=== PATIENT | female | born 1940 | race Caucasian/White ===

== ENCOUNTER 2018-03-01 07:52 | Inpatient (IN) | payer MEDICARE, SELFPAY ==
[2018-02-11 12:37] VITALS: BMI 25.0
[2018-03-01] VITALS (13 sets, daily range): BP systolic 124–150; BP diastolic 63–74; PULSE 85–102; RESP 12–27; TEMP 35.5–36.6; O2SAT 94–100; BMI 25.0; BMI 24.1
--- NOTE | 2018-03-01 | DI.RAD.S_ITS ---
PROCEDURE: XR HIP W PEL IF DONE RT 2V INDICATIONS: RIGHT TOTAL HIP TECHNIQUE: AP pelvis and lateral view of the right hip acquired. [facility] 12:02. [facility], [facility], [id number] W PEL IF PERFORMED, 12/06/2015, 11:21. FINDINGS: Bones: Patient is status post right hip arthroplasty, with hardware components in expected positions. The hip joint appears congruent. The visualized bony structures appear intact. A left hip arthroplasty is incidentally noted. There are prominent degenerative changes involving the lumbosacral spine and pubic symphysis. Soft tissues: Overlying postoperative changes are noted. No suspicious soft tissue densities. Expected postoperative changes within the overlying soft tissues are present. There is a surgical drainage catheter overlying the right hip/thigh region. No unexpected radiopaque foreign bodies are identified. IMPRESSION: Expected post surgical changes related to a right total hip arthroplasty. Dictated by: Jason Bowles M.D. on 03/01/2018 at 13:12 Approved by: Jason Bowles M.D. on 03/01/2018 at 13:13
--- NOTE | 2018-03-01 | PATH_ITS ---
[facility] Accession Number: [id number] . 01 Material submitted: . PART A: FEMORAL BIOPSY PART B: FEMORAL HEAD . 01 Clinical history: . HX METASTATIC BREAST CANCER . 02 Diagnosis: A. Femoral Biopsy: Bone fragments and associated trilineage hematopoietic tissue. Negative for metastatic carcinoma by immunohistochemistry studies. . B. Femoral Head, Presumed Fracture Repair: Portions of bone, fibroconnective tissue, and trilineage hematopoietic tissue with reactive changes. No tumor identified by H/E stain. . I/03/08/2018 . 02 Electronically signed: . Sheila iDa MD, Pathologist NPI- [id number] . 01 Gross description: . (A) Received in formalin, labeled femoral biopsy, are multiple fragments of rodas gritty bone and soft tissue (2.5 x 2.0 x 0.2 cm in aggregate). Decalcified and entirely submitted in cassette A1. (B) Received in formalin, labeled femoral head, HX of metastatic breast CX, is a resected femoral head (5.0 x 4.5 x 4.3 cm) with an attached portion of ligmentum teres (2.8 x 2.0 x 0.5 cm). Focal eburnation and exophytic growth are identified. The cut surface is rodas and focally hemorrhagic. The resection margin is inked black. Section code: (B1) portion of ligamentum teres, serially sectioned, entirely submitted; (B2-B4) one full cross-section quartered; (B5-B7) additional retail field representative sections. Note: The bone sections have been decalcified. ([id number]) /MRV . 02 Microscopic: . A. An immunohistochemical stain was performed to evaluate for SILVA and is negative for metastatic carcinoma. The control stain showed appropriate reactivity. . * This test was developed and its performance characteristics determined by [facility]. It has not been cleared or approved by the U.S. Food and Drug Administration. The FDA has determined that such clearance or approval is not necessary. This test is used for clinical purposes. It should not be regarded as investigational or for research. . 02 Pathologist provided ICD-10: Z96.641 . 02 CPT . 302039, 821685, N19706, 281813, 177974 Performed at: 01 [facility] [address] [id number] MD Zoran Castillo MD Phone: [phone] Performed at: 02 [facility] [id number] [place] [id number] MD Dana Martinez MD Phone: [phone]
--- NOTE | 2018-03-01 06:00 | DI.RAD.S_ITS ---
PROCEDURE: XR HIP W PEL IF DONE RT 2V INDICATIONS: prosthesis placement TECHNIQUE: Single intraoperative view of the pelvis and hips acquired. COMPARISON: [facility], CR, [id number] W PEL IF PERFORMED, 12/06/2015, 11:21. FINDINGS: Bones: Limited intraoperative view of the pelvis and hips obtained for surgical planning demonstrates interval partial placement of a right hip prosthesis. The right femoral neck component appears centered in the acetabular cup. A left hip prosthesis is redemonstrated. Soft tissues: Overlying postoperative changes are noted. No suspicious soft tissue densities. IMPRESSION: 1. Intraoperative study obtained for surgical planning demonstrates partial placement of a right hip prosthesis. Dictated by: Zoran Lainez M.D. on 03/01/2018 at 13:09 Approved by: Zoran Lainez M.D. on 03/01/2018 at 13:12
[2018-03-01] MEDS: LACTATED RINGERS 1,000 ML 42 ML IV ×2 (09:27→11:59)
[2018-03-01] MEDS: PREGABALIN 75 MG CAPSULE PO (09:34)
[2018-03-01] MEDS: ACETAMINOPHEN 325 MG TABLET 975 MG PO ×2 (09:34→20:09)
[2018-03-01] MEDS: CELECOXIB 200 MG CAPSULE PO (09:34)
[2018-03-01] MEDS: VANCOMYCIN 1,000 MG/200 ML FROZ.PIGGY 200 MG IV (09:44)
--- NOTE | 2018-03-01 10:12 | PM.PREOP ---
Pre-operative Note Interval Note History & Physical reviewed/Exam performed by Physician: Yes Changes to H&P: No
--- NOTE | 2018-03-01 10:13 | PM.OP.1 ---
Operative Date/Time/Diagnoses Date of procedure: 03/01/18 Time of procedure: 10:50 Pre-op diagnosis: right hip OA, metastatic breast CA Post-op diagnosis: same Procedure & Clinicians Procedure: Right total hip arthroplasty Same procedure as scheduled: Yes Indications: The patient has had progressively worsening right hip pain with radiographic changes consistent with arthritis. She also has a known history of metastatic breast cancer for 18 years. Non-operative management has failed and the patient has requested total hip replacement. The risks, benefits and alternatives to surgery were discussed with the patient prior to proceeding. Risks discussed included, but were not limited to, failure to relieve pain, leg length discrepancy, dislocation, stiffness, infection, nerve damage, deep venous thrombosis, pulmonary embolism, stroke, coma, heart attack, permanent paralysis and , as well as the potential need for eventual revision of the prosthetic. Surgeon: Lynda Winston Front Counter Attendant: Rachel Still Anesthesia Type: General and Spinal Operative Notes Findings: Severe right hip osteoarthritis, good stability Closure Type: primary Specimen(s): other (pathology) Implants & Drains: [employer] cemented 10, R3 52, 36x0 femoral head Applied: drain(s) Estimated Blood Loss (mL): 250 Blood products transfused: none Procedure in detail: The patient was seen in the pre-operative area, where the patient identified the right hip as the operative site and this was marked with my initials. The patient received pre-operative antibiotics and was taken to the operating room and placed on the operative table in the left lateral decubitus position after satisfactory anesthesia. A multimedia specialist out was performed. The right leg was prepared from the ankle to the iliac crest with ChloroPrep in the usual fashion and draped through sterile drapes. The hip was approached through an approximately 20 cm incision centered over the greater trochanter and curving gently posteriorly as it went proximally. This was carried sharply to the fascia paulina, which was divided and retracted with a self retaining retractor. The trochanteric bursa was excised with care being taken to avoid the sciatic nerve, which was identified and protected throughout the case. The short external rotators were incised and the capsulomuscular flap was raised and tagged for later repair. The hip was dislocated, and a femoral neck osteotomy performed approximately 15 mm above the lesser trochanter. Retractors were placed around the femur. The canal was opened with a box cutting osteotome, followed by a T handled reamer and a lateralizing reamer. Canal reaming was performed to a size 10, followed by sequential broaching until there was good stability of the broach in the femur. Retractors were placed to expose the acetabulum. The labrum and central soft tissues were removed. Reaming was performed initially going up in 2 mm increments, then 1 mm increments until good bite was obtained with an odd sized reamer. The cup 1 mm larger than the last reamer was then inserted using the appropriate anteversion guides. She had fairly good quality bone but it was opted to supplement her cup fixation with 6 5 screw. A trial neutral liner was placed. The broach was placed in the canal. A trial head and neck were then placed and the hip relocated and checked for leg length and stability. An intraoperative film confirmed the component position and no evidence of fracture. The patient was stable in the position of sleep, of squatting, and could be put through a range of motion with 45 degrees internal rotation without dislocation. At 90 degrees flexion, internal rotation to 70 was possible before dislocation. This was felt to be satisfactory and the appropriate components were opened, and the trials were removed. The acetabular liner was impacted into position. Because of the patient's history of metastatic breast cancer and fairly soft bone cemented prosthesis was selected. A distal cement restrictor of the smallest size was opened and then trimmed to make it smaller because of her small canal. Even the smallest cementralizer would not pass distally in the canal. Cement was carefully mixed and pressurized into the canal after cleaning the canal with pulse lavage. The final stem was then impacted into the prepared femoral canal. Free cement was carefully cleared and the prosthesis was held stable until all cement had hardened. A brief Betadine soak was performed while trialing with head options. The hip was meticulously irrigated with normal saline. Finally the femoral head was impacted onto the stem. The acetabulum was cleared of all material and the hip relocated one final time. The capsulomuscular flap was then repaired to the greater trochanter though an awl hole using the tag sutures. The short external rotators were repaired with a black braided nylon. A deep drain was placed and brought out anteriorly. The fascia paulina was closed with Vicryl. The subcutaneous layer was closed with barbed sutures and SteriStrips. An Aquacel Ag dressing was applied and the patient was taken to recovery having tolerated the procedure well. Complications: none Condition: stable Disposition: Acute Care Plan for aftercare: The patient will be maintained on a standard total hip replacement protocol with weight bearing as tolerated and posterior hip precautions. The patient will receive Aspirin and sequential compression devices for DVT prophylaxis. The patient will be discharged home when safe for the home environment.
[2018-03-01] MEDS: CEFAZOLIN 2 GM/100 ML FROZ.PIGGY IV ×2 (10:55→18:53)
--- NOTE | 2018-03-01 11:23 | SUR.OPER ---
Lateral on padded OR bed. Gel axillary roll. Arms secured on padded armboard with pillow supporting top arm. Padded hip positioner braces x4 - anterior and posterior chest and pelvis. Additional gel pad used anterior pelvis. Gel pad under bottom leg from knee to foot and secured with tape over sheet.
[2018-03-01] MEDS: BUPIVACAINE 0.25% W/ EPI VIAL 60 ML INJ ×2 (11:27→11:28)
[2018-03-01] MEDS: BUPIVACAINE LIPOSOME 266 MG/20 ML VIAL INJ (11:29)
--- NOTE | 2018-03-01 13:50 | SUR.PHASEI ---
REPORT CALLED TO [facility] ON ACUTE CARE FLOOR. PT IN STABLE CONDITION, VSS. DRSG TO SURGICAL SITE C/D/I. HEMAVAC DRAIN INTACT. +PULSES ON BLE, WARM TO TOUCH AND PINK IN COLOR. PT LAYING IN BED WITH EYES OPEN EATING ICE CHIPS. PT DENIES ANY NAUSEA AND STATES PAIN LEVEL IS TOLERABLE AT THIS TIME. PT BEING TRANSFERED TO FLOOR AT THIS TIME.
--- NOTE | 2018-03-01 14:15 | SUR.PHASEI ---
PT TRANSFERED TO ACUTE CARE FLOOR IN STABLE CONDITION. PT ALERT AND TALKING TO RN DURING TRANSPORT. PT AT BEDSIDE UPON ARRIVAL TO ROOM. BEDSIDE REPORT GIVEN TO [facility] AND TRANSFERED CARE OF PT TO HER AT THAT TIME.
[2018-03-01] MEDS: LACTATED RINGERS 1,000 ML 125 ML IV ×2 (14:55→23:05)
--- NOTE | 2018-03-01 15:47 | PC.NURSE ---
Recieved from pacu at 1410, s/p total hip. No void since surgery and pt doesn't feel a need to void. Has some sensation at knees, can't move toes yet. Cont pulse ox is on and pt is 97% or greater on ra. No pain, no nausea, given some tea per request. PPP in feet w/brisk cap refill. Aquacel dressing to rt hip is c/d/i. Hemovac compressed and drains red fluid. denies any concerns at this time.
--- NOTE | 2018-03-01 16:30 | PT.IIE ---
Current Diagnoses Malignant neoplasm of unspecified site of left female breast (03/01/18) Other chronic pain (03/01/18) Dorsalgia, unspecified (03/01/18) Surgery Performed Operation Date: 03/01/18 10:45 Actual Procedures p Total Hip Arthroplasty(Right) - Lynda Winston MD Surgical History (Last Updated 02/11/18 @ 12:53 by Nichole Lester, RN) History of appendectomy (Acute) History of cholecystectomy (Acute) History of left mastectomy (Acute) History of total left hip arthroplasty (Acute ~12/06/15) Medical History (Last Updated 02/11/18 @ 13:22 by Nichole Lester, RN) Breast cancer, left (Acute) Cataracts, bilateral (Acute) Chronic back pain (Acute) Diarrhea (Acute) Diverticulosis (Acute) Hand foot syndrome (Acute) Heartburn (Acute) Hyperlipidemia (Acute) Malignant neoplasm of unspecified site of left female breast (Acute) Metastatic breast cancer (Acute) Shingles (Acute) Stomatitis (Acute) Unilateral primary osteoarthritis, right hip (Acute) Urinary frequency (Acute) Physical Therapy Inpatient Evaluation/Re-Eval M1 PT/OT-IP Prior Functional Status Start: 03/01/18 17:45 Freq: NEEDED Status: Active Protocol: Document 03/01/18 16:30 AB (Rec: 03/01/18 18:02 AB [id number]) Medical Review Prior Functional Status Medical History Reviewed Yes Communication able to make needs known Mobility and Gait pt staed that she is independent with all mobilities and ambulation without AD Social History Household Members spouse children Living Arrangements Apartment/Condo Number of Floors (Floors) One Floor Number of Stairs To Enter/Railing? no steps to enter Home Environment High Toilet Walk in Shower Home Equipment Front Wheel Walker Straight Cane Shower Seat without Backrest Hand Held Shower Grab Bars In Shower Employment Status Retired Additional Social History Comment has spouse and son to assist her M2 PT-IP Current Condition Start: 03/01/18 17:45 Freq: NEEDED Status: Active Protocol: Document 03/01/18 16:30 AB (Rec: 03/01/18 18:02 AB [id number]) Physical Therapy Current Condition Current Condition Evaluation Date 03/01/18 Treatment Diagnosis s/p R TIMOTHY posterior approach; difficulty in walking Onset Date 03/01/18 Precautions Posterior Hip Precautions No Hip Flexion > 90 degrees No Hip Internal Rotation No Hip Adduction Other Precautions R LE/knee tends to turn inwards Weight Bearing Status Weight Bearing Status Weight Bear as Tolerated M3 PT-IP Subjective Start: 03/01/18 17:45 Freq: NEEDED Status: Active Protocol: Document 03/01/18 16:30 AB (Rec: 03/01/18 18:02 AB [id number]) Subjective Physical Therapy Visit Type Type Initial Evaluation Visit Start Time 16:30 Visit Stop Time 17:17 Total Visit Minutes 47 Number of ANIMATION ARTIST Visits 0 Physical Therapy Visit Comments Patient Comments pt stated that she can feel RLE but not 100% yet Patient Goals to go home Therapy Pain Assessment Pain Present Pain Present Denied Pain M4 PT-IP Mobility and Gait Start: 03/01/18 17:45 Freq: NEEDED Status: Active Protocol: Document 03/01/18 16:30 AB (Rec: 03/01/18 18:02 AB [id number]) PT-Bed Mobility Assessment Supine to Sit Supine to Sit Standby Assistance PT-Transfer Assessment Sit to and From Stand Sit to and from Stand Moderate Assistance Maximum Assistance 1 Person Assistance Use of Upper Extremities Equipment Transfer Assistive Device Gait Belt Front Wheeled Walker Orthotic/Prosthetic Devices or Brace: No Comments Mobility Comments pt completed bed mobility supine to sit SBA and cues to maintain R hip posterior precautions. pt able to sit on EOB SBA. noted increase R knee turning inwards and cued pt to correct position. required assistance for positioning. pt completed sit to stand with cues to maintain hip precautions requiring mod to max A and cues. pt has decrease RLE control and needs assistance and max cues to activate quad muscle. pt agreed to sit up on chair after ambulation. positioned pt on chair with dinner tray. ice pack provided. call light set up within reach. informed nurse regarding pt's level of assistance. Gait Assessment Gait Gait Assistance Required: Moderate Assistance Distance (Feet) 20 Able to Maintain Weight Bearing Status Yes During Gait Assistive Devices Assistive Device Gait Belt Front Wheeled Walker Orthotic/Prosthetic Devices or Brace: No Gait Deviations General Gait Pattern Antalgic Decreased Stride Length Decreased Feet Clearance Factors Limiting Gait Function Factors Limiting Gait Function Abnormal Tonal Influences Decreased Activity Tolerance Decreased Sensation Decreased Strength Incoordination Limited Range of Motion Pain Poor Balance Poor Safety Awareness Comments Gait Comments pt completed ambulation in room using FWW 20 ft requiring mod to max A and max cues to activate R quads. pt unsteady with gait and pt stated that she is still a little numb on RLE. PT-Balance Assessment Sitting Balance and Reactions Static Sitting Balance Ability Good Dynamic Sitting Balance Ability Good Standing Balance and Reactions Static Standing Balance Ability Poor Dynamic Standing Balance Ability Poor Device Used FWW M5 PT-IP Objective Assessments Start: 03/01/18 17:45 Freq: NEEDED Status: Active Protocol: Document 03/01/18 16:30 AB (Rec: 03/01/18 18:02 AB [id number]) Orientation Orientation/Cognition Level of Alertness Alert Orientation Name Age Birthday Place Situation Memory Description Short Term Impaired Gross Range of Motion Lower Extremity ROM Assessment Within Functional Limits Strength Lower Extremity Strength Assessment Right Impaired Knee 3+/5 Ankle 4/5 Sensation Assessment Sensation Gross Sensation Right LE Impaired Light Touch Impaired Sensation Description Numbness Comments Sensation Comments pt c/o slight numbness on RLE. able to move RLE during muscle testing but has decrease sensation. M6 PT-IP Treatment Start: 03/01/18 17:45 Freq: NEEDED Status: Active Protocol: Document 03/01/18 16:30 AB (Rec: 03/01/18 18:02 AB [id number]) Physical Therapy Treatment Exercises Exercises Heel Slides Education Education Provided Precautions Weight Bearing Status Post-Op Packet Safety M7 PT-IP Assessment and Plan Start: 03/01/18 17:45 Freq: NEEDED Status: Active Protocol: Document 03/01/18 16:30 AB (Rec: 03/01/18 18:02 AB [id number]) PT Summary Assessment and Plan Potential Rehabilitation Potential Fair Status of Condition at Evaluation Evolving Summary Impairments Pain ROM Strength Balance Coordination Sensation Tone Cognition Bed Mobility Transfers Gait Activity Tolerance Assessment Summary pt requiring mod to max A with mobility. pt just had surgery this morning and has not fully regained sensation on RLE affecting mobility. pt will likely improve during hospital stay. caregiver training will be conducted when appropriate and if able to safely assist pt, pt may go home when medically stable. pt stated that she is set up for outpt PT. Goals Bed Mobility Goal Independent Transfer Goal Standby Assistance Front Wheeled Walker Gait Goal Standby Assistance Front Wheel Walker Gait Distance 150 Days to Meet Goals 3 Frequency of Treatment Frequency Of Treatment Twice a Day Treatment Plan Physical Therapy Treatment Plan Bed Mobility Training Transfer Training Gait Training Therapeutic Exercise Balance Retraining Post Op Education Discharge Planning Hot or Cold Pack Neuromuscular Re-ed Coordination Retraining Manual Therapy Other Recommendations and Next Treatment ambulation, caregiver training Focus Recommendations To Nursing Amount of Assist Needed 1 Person Assist Discharge Recommendations PT Discharge Recommendations Home with Assistance Outpatient PT
[2018-03-01] MEDS: METOPROLOL IR 50 MG TABLET PO (20:09)
[2018-03-01] MEDS: DOCUSATE 100 MG CAPSULE PO (20:09)
[2018-03-01] MEDS: ATORVASTATIN 10 MG TABLET PO (20:09)
[2018-03-01] MEDS: ASPIRIN EC 81 MG TABLET PO (20:09)
--- NOTE | 2018-03-01 23:45 | PC.NURSE ---
Addendum entered by Galina Parker R.N. 03/02/18 06:31: Doing well with transferring in/out of bed requiring only SBA + walker. Continues to deny pain. Had 80cc out of hemovac this shift. Original Note: Patient is alert and oriented. Breath sounds CTA with RA sat of 98%; remains on continuous pulse oximetry related to epidural anesthesia. HRR. Denies nausea. BT present and is passing flatus. Denies dysuria, frequency or urgency; up to BSC with 1 assist + walker. Dressing to right hip is CDI. Hemovac intact and compressed. Assisted to turn onto right side but did well with moving. States no pain unless lying directly on hip. Following posterior hip precautions. CMS intact. Wearing bilateral SCD's. Fall risk score is high and bed alarm is activated.
[2018-03-02] MEDS: CEFAZOLIN 2 GM/100 ML FROZ.PIGGY IV (02:39)
[2018-03-02 03:00] VITALS: BP 106/61; PULSE 97; RESP 15; TEMP 36.5; O2SAT 97
[2018-03-02] MEDS: LEVOTHYROXINE 137 MCG TABLET PO (06:13)
[2018-03-02 06:32] LABS: Hematocrit 30.8 % (36-46); Hemoglobin 10.4 g/dL (12.0-16.0)
[2018-03-02 08:00] VITALS: BP 124/64; PULSE 106; RESP 16; TEMP 36.7; O2SAT 99
[2018-03-02] MEDS: ASPIRIN EC 81 MG TABLET PO (08:55)
[2018-03-02] MEDS: ACETAMINOPHEN 325 MG TABLET 975 MG PO (08:56)
[2018-03-02] MEDS: LOSARTAN 50 MG TABLET PO (08:57)
[2018-03-02] MEDS: METOPROLOL IR 50 MG TABLET PO (08:58)
[2018-03-02] MEDS: PANTOPRAZOLE 40 MG TABLET PO (08:59)
--- NOTE | 2018-03-02 09:40 | P.DS_ITS ---
History of Present Illness Date Patient Seen: 03/02/18 Time Patient Seen: 09:38 Chief complaint: [id number] RIGHT TOTAL HIP ARTHROPLASTY Narrative: Pain is mild. Denies fever chills. No nausea vomiting. She has been up using the restroom. Has been home to assist her. Patient wishes to go home today if safe to do so. Otherwise without complaints. Discharge Providers Date of admission: 03/01/18 07:52 Primary care physician: Kavita Gutierrez MD Consults: 02/11/18 13:41 Consult to Engraver Signature Routine Comment: Metastatic Breast Cancer - on narcotics for pain 03/01/18 06:00 Consult to Anesthesiology Routine Comment: Consulting Provider: Anesthesiologist Reason for consultation: Regional block for post operative pain control 03/01/18 14:40 Consult to Discharge Planning Routine Comment: Consult to Physical Therapy Evaluate & Treat Comment: Physician Instructions: post op TIMOTHY protocol Consult to Respiratory Therapy Evaluate & Treat Comment: Physician Instructions: Evaluate and treat Discharge provider: Des Love PA-C Discharge Date: 03/02/18 Summary Discharge Diagnosis: Status post right total hip arthroplasty Hospital Course: [place] [address] Operative Note Patient: Sheila Teixeira MR#: [id number] : 1940 Acct:[id number] Age/Sex: 77 / F Date of Service: 03/01/18 Provider: Lynda Winston MD Operative Date/Time/Diagnoses Date of procedure: 03/01/18 Time of procedure: 10:50 Pre-op diagnosis: right hip OA, metastatic breast CA Post-op diagnosis: same Procedure & Clinicians Procedure: Right total hip arthroplasty Same procedure as scheduled: Yes Indications: The patient has had progressively worsening right hip pain with radiographic changes consistent with arthritis. She also has a known history of metastatic breast cancer for 18 years. Non-operative management has failed and the patient has requested total hip replacement. The risks, benefits and alternatives to surgery were discussed with the patient prior to proceeding. Risks discussed included, but were not limited to, failure to relieve pain, leg length discrepancy, dislocation, stiffness, infection, nerve damage, deep venous thrombosis, pulmonary embolism, stroke, coma, heart attack, permanent paralysis and , as well as the potential need for eventual revision of the prosthetic. Surgeon: Lynda Winston Archery Equipment Repairer: Rachel Still Anesthesia Type: General and Spinal Operative Notes Findings: Severe right hip osteoarthritis, good stability Closure Type: primary Specimen(s): other (pathology) Implants & Drains: [employer] cemented 10, R3 52, 36x0 femoral head Applied: drain(s) Estimated Blood Loss (mL): 250 Patient taken to the operating room underwent right total hip arthroplasty. Patient back in her room recovering well as in stable condition. Status at Discharge Functional status at discharge: uses cane/walker Overall status at discharge: patient is progressing back to baseline Time Spent with Patient Less than 30 minutes Exam Vital Signs (past 8 hours): - 03/02/18 03:00 Temperature 97.7 F Pulse Rate 97 H Respiratory Rate 15 Blood Pressure 106/61 Pulse Oximetry 97 Oxygen Delivery Method Room Air Oxygen Flow Rate 0 Narrative Exam Narrative: Pleasant 77-year-old female resting comfortably in bed in no apparent distress. Right hip dressing is clean, dry and intact. Hemovac drain in place. Motor functions intact distal right lower extremity. Right leg is warm and dry. Sensation grossly intact to light touch. Objective Labs Result Diagrams: 03/02/18 06:20 Labs: Laboratory Results - last 24 hr 03/02/18 06:20 Hgb 10.4 L Hct 30.8 L Discharge Plan Discharge Plan Patient Disposition: Home Discharge comment: DC home today Discharge Med Rec/Prescriptions Prescriptions: No Action losartan 50 MG tablet 50 mg PO QDAY Qty: 0 RF: 0 atorvastatin [Lipitor] 10 MG tablet 10 mg PO HS Qty: 0 RF: 0 levothyroxine 137 MCG tablet 0.137 mg PO QAM Qty: 0 RF: 0 metoprolol tartrate 50 MG tablet 50 mg PO BID Qty: 0 RF: 0 capecitabine 500 MG tablet 500 mg PO BID Qty: 0 RF: 0 omeprazole 40 mg Capsule,Delayed Release(Dr/Ec) 40 mg PO DAILY RF: 0 acetaminophen [Acetaminophen Extra Strength] 500 mg Tablet 1,000 mg PO QID PRN (Reason: Pain) RF: 0 hydrocodone-acetaminophen 5-325 mg Tablet 1 tab PO Q6H PRN (Reason: Pain (Scale Score 4-6)) RF: 0 Follow up/Referrals: Kavita Gutierrez MD [Primary Care Provider] - Lynda Winston MD [Physician] - (follow up 5-7 days) Provider Discharge Instructions Diet: Diet as Tolerated Activity: WBAT, posterior hip precautions Cold/Heat Therapy: ice as needed Other treatments: Aspirin 81 mg b.i.d., Tylenol 1000 mg t.i.d., Mobic once daily , oxycodone as needed pain, Vistaril as needed muscle spasm and nausea Skin/Wound/Dressing Care Report to your healthcare provider any signs of infection, such as:: chills, fever, increased pain, unusual drainage and unusual redness Dressing: keep clean and dry Discharge Data Primary Care Provider: Kavita Gutierrez Attending Provider: Lynda Winston Admit Date/Time: 03/01/18 07:52
--- NOTE | 2018-03-02 10:10 | PT.IPTN ---
Current Diagnoses Malignant neoplasm of unspecified site of left female breast (03/01/18) Other chronic pain (03/01/18) Dorsalgia, unspecified (03/01/18) Surgery Performed Operation Date: 03/01/18 10:45 Actual Procedures p Total Hip Arthroplasty(Right) - Lynda Winston MD Physical Therapy Treatment Note M2 PT-IP Current Condition Start: 03/01/18 17:45 Freq: NEEDED Status: Active Protocol: Document 03/01/18 16:30 AB (Rec: 03/01/18 18:02 AB [id number]) Physical Therapy Current Condition Current Condition Evaluation Date 03/01/18 Treatment Diagnosis s/p R TIMOTHY posterior approach; difficulty in walking Onset Date 03/01/18 Precautions Posterior Hip Precautions No Hip Flexion > 90 degrees No Hip Internal Rotation No Hip Adduction Other Precautions R LE/knee tends to turn inwards Weight Bearing Status Weight Bearing Status Weight Bear as Tolerated M3 PT-IP Subjective Start: 03/01/18 17:45 Freq: NEEDED Status: Active Protocol: Document 03/02/18 10:10 GGD (Rec: 03/02/18 12:19 GGD [id number]) Subjective Physical Therapy Visit Type Type Treatment Note Visit Start Time 09:50 Visit Stop Time 10:15 Total Visit Minutes 25 Number of BEAN SPROUT LABORER Visits 1 Physical Therapy Visit Comments Patient Comments Pt states she hopes to go home . Therapy Pain Assessment Pain Present Pain Present Denied Pain M4 PT-IP Mobility and Gait Start: 03/01/18 17:45 Freq: NEEDED Status: Active Protocol: Document 03/02/18 10:10 GGD (Rec: 03/02/18 12:19 GGD [id number]) PT-Bed Mobility Assessment Supine to Sit Supine to Sit Standby Assistance Scooting Scooting to Edge of Bed Standby Assistance PT-Transfer Assessment Sit to and From Stand Sit to and from Stand Standby Assistance Use of Upper Extremities Equipment Transfer Assistive Device Gait Belt Front Wheeled Walker Orthotic/Prosthetic Devices or Brace: No Transfers Transfer Destination Chair Transfer Ability Level of Assist Contact Guard Assistance Gait Assessment Gait Gait Assistance Required: Standby Assistance Distance (Feet) 220 Able to Maintain Weight Bearing Status Yes During Gait Assistive Devices Assistive Device Gait Belt Front Wheeled Walker Orthotic/Prosthetic Devices or Brace: No Gait Deviations General Gait Pattern Antalgic Decreased Stride Length Decreased Feet Clearance Factors Limiting Gait Function Factors Limiting Gait Function Abnormal Tonal Influences Decreased Activity Tolerance Decreased Sensation Decreased Strength Incoordination Limited Range of Motion Pain Poor Balance Poor Safety Awareness M5 PT-IP Objective Assessments Start: 03/01/18 17:45 Freq: NEEDED Status: Active Protocol: Document 03/01/18 16:30 AB (Rec: 03/01/18 18:02 AB [id number]) Orientation Orientation/Cognition Level of Alertness Alert Orientation Name Age Birthday Place Situation Memory Description Short Term Impaired Gross Range of Motion Lower Extremity ROM Assessment Within Functional Limits Strength Lower Extremity Strength Assessment Right Impaired Knee 3+/5 Ankle 4/5 Sensation Assessment Sensation Gross Sensation Right LE Impaired Light Touch Impaired Sensation Description Numbness Comments Sensation Comments pt c/o slight numbness on RLE. able to move RLE during muscle testing but has decrease sensation. M6 PT-IP Treatment Start: 03/01/18 17:45 Freq: NEEDED Status: Active Protocol: Document 03/02/18 10:10 GGD (Rec: 03/02/18 12:19 GGD [id number]) Physical Therapy Treatment Exercises Exercises Ankle Pumps Gluteal Sets Quad Sets Heel Slides Seated Knee Flexion/Extension Education Education Provided Precautions Weight Bearing Status M7 PT-IP Assessment and Plan Start: 03/01/18 17:45 Freq: NEEDED Status: Active Protocol: Document 03/02/18 10:10 GGD (Rec: 03/02/18 12:19 GGD [id number]) PT Summary Assessment and Plan Summary Assessment Summary Pt improving with mobility. She needed less assistance and is SBA for mobility. She was able to progress gait distance with good pain control. Pt is safe for home D/C when medically stable. Frequency of Treatment Frequency Of Treatment Twice a Day Treatment Plan Physical Therapy Treatment Plan Bed Mobility Training Transfer Training Gait Training Therapeutic Exercise Balance Retraining Post Op Education Discharge Planning Hot or Cold Pack Neuromuscular Re-ed Coordination Retraining Manual Therapy Other Recommendations and Next Treatment ambulation Focus Recommendations To Nursing Amount of Assist Needed 1 Person Assist Discharge Recommendations PT Discharge Recommendations Home with Assistance Outpatient PT
--- NOTE | 2018-03-02 10:32 | CM.DANOTE ---
Discharge Planning/Care Management CM Discharge Assessment Start: 03/02/18 10:27 Freq: Status: Active Protocol: Document 03/02/18 10:28 (Rec: 03/02/18 10:32 [id number]) Discharge Planning Assessment Assigned Freight Loading Supervisor DOALYS Kirby Advance Directives? No History Provided By Patient Medical Record Has Patient been admitted in last 30 No days? Prior Living Arrangements Apartment/Condo Household Members spouse children Type of transporation used prior to Drives own vehicle admit Independent with ADL's Yes Is patient alert and oriented? Yes Caregiver for Another No DME Already Rented / Owned Cane Comment Uses cane for long distance or end of day. Patient/Family Preference OP PT Therapy Barriers to Discharge No Discharge Plan Home Community Services Physical Therapy Transportation Arrangement Spouse will provide. Referrals Initiated None needed Comment Patient admitted following a total right hip. Primary payer is Medicare/[employer]. Patient to discharge home today with OP PT. PT has evaluated patient and recommends a safe d/c of home with OP PT. Met with patient: patient agreeable to discharge and has no concerns. 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 Whiteboard Updated in Patient Room with Yes name and ext. # of Freight Loading Supervisor Please Provide Date Initial DC 03/02/18 Assessment Was Performed Pre-Anesthesia Assessment Start: 02/11/18 12:37 Freq: Status: Complete Protocol: Document 02/11/18 12:37 JAY (Rec: 02/11/18 12:44 Gabriella [email or web address]) Pre-Anesthesia Assessment Patient Information Reviewed Via Chart Review Phone Assessment Assessment Completed With Patient Primary Care Provider Kavita Gutierrez Seen Specialist in Last 12 Months Yes Specialist Seen Oncologist Orthopedist Primary Language [employer] Required No Height 162.56 cm Weight 66.224 kg Body Mass Index (BMI) 25.0 Hearing Ability Normal Visual Impairment Partially Limited Visual Assist Glasses Dentition Type Teeth, Natural Present Barriers to Learning Visual Other Aids No Hx Anesthesia Reactions No: Prefers spinal/general Hx Family Anesthesia Reaction No Hx Malignant Hyperthermia No Hx Blood Transfusions No Anesthesia Review Requested No Medical Intern No alcohol intake current alcohol intake frequency a few times a month Smoking Status Never smoker Substance Use Type opiates painkillers Pain Present Pain Reported Comment right hip down right leg Musculoskeletal Symptoms Abnormal Gait Back Pain Joint Pain Joint Stiffness Joint Swelling Limited Range of Motion Muscle Cramps Muscle Spasms Muscle Weakness Radiating Pain into Limb History of Falling (Recent or History of No ) Patient is completely paralyzed or No completely immobile Ambulatory Aid None/bed rest/nurse assist Gait/Transferring Weak Mental Status Oriented to own ability Is patient on oxygen? No Does patient have ZAVALA/SOB No Hx Sleep Apnea No Will Bring CPAP/BIPAP DOS No Currently Taking a Beta Harley Yes: Metoprolol Can You Climb a Flight of Stairs Without No SOB Hx Chest Pain No Hx SOB No Hx Syncope or Dizziness No Anti-Coagulant Therapy No Has a Compounding Assistant Yes: hasn't seen since 2009 Hx Pacemaker/ICD No Pacemaker Rep Required? No Cardiac Clearance Received Not Applicable Diet Type At Home Regular dysphagia Yes Bladder Pattern Incontinent, Stress Nocturia Urinary Catheter Present No Hx Urinary Self Catheterization No Diabetes No Patient No Lactating No Hx Drug Resistant Organism No Presence of External or Internal Medical Yes: Left TIMOTHY Devices Have you traveled outside the [facility] in the last 30 days? Marital Status Lives With spouse children Prior Living Arrangements Apartment/Condo Number of Floors (Floors) One Floor Number of Stairs To Enter/Railing? No stairs into home Support System Child/Children Family Friend(s) Spouse Does the Patient Have Assistance After Yes Surgery Patient Discharge Plan Description Home Health Comment Plans 1 night stay Feels Safe in Current Environment Yes Been Physically Hurt or Threatened By a No Person in Current Environment Do you have thoughts of harming yourself None or others? Are you currently considering suicide? No Do you have a plan to hurt yourself or No Plan others? Do You Have Any Spiritual Beliefs That No May Affect Your HC Choices? Do You Have Any Cultural Practices That No May Affect Your HC Choices? Spiritual Referral None Comment Adventism Who Can We Speak to About Patient's Care Family & Friends Identifying Code for Release of Patient Declines Information Health Care Proxy/Next of Kin Osvaldo Teixeira - Health Care Proxy Emergency Contact Name Osvaldo Teixeira - Emergency Contact Advance Directives? No: Mailed pt/spouse Power of Oracle Identity Management Consultant Yes Power of [employer] Identity Management Consultant Name Osvaldo Teixeira - spouse; then children Power of [employer] Identity Management Consultant PAC Instructions Assistance for 24 hours post- op Do not shave/clip surgical site Durable medical equipment Medications to take/avoid Nasal antibiotic No ETOH/petroleum product on skin DOS NPO Ortho class Post-op transportation Pre-op antibiotic Pre-surgical wash Sensory aids Sturdy shoes/comfortable clothes Do not bring valuables and remove jewelry Comment Check-in [id number]
--- NOTE | 2018-03-02 12:41 | PC.NURSE ---
Addendum entered by Anahi Calvert R.N. 03/02/18 13:46: Pt a/o x3, PT has cleared Pt from services, OK to d/c home. Teaching provided, Pt has completed swiftpath training. D/c to private vehicle with spouse. Original Note: AM shift Medication list not finalized at d/c from provider, verified medications. Copy in chart for MR. Lucas calvert RN
--- NOTE | 2018-03-02 13:47 | PC.NURSE ---
Addendum entered by Edna Mahajan 03/02/18 14:06: IV AND HEMOVAC REMOVED AND INTACT. Original Note: PATIENT UP TO SHOWER WITH 1 PERSON ASSIST WITHOUT DIFFICULTY. REVIEWED DISCHARGE INSTRUCTIONS, REMINED PT NOT TO REMOVE DSG. UNTIL PO VISIT WITH IN 5-7 DAYS. D/C'D WITH .
== END 2018-03-02 15:02 | disposition home or self-care (01) | DRG 470 ==
PROVIDERS: Admitting Provider Orthopaedic Surgery; Family Provider Internal Medicine Hematology & Oncology; PCP Internal Medicine Hematology & Oncology; Visit Provider Orthopaedic Surgery
PROC: 0SR90JZ Replacement of Right Hip Joint with Synthetic Substitute, Open Approach (ICD-10-PCS; CPT 27130; principal; 2018-03-01 10:45)
DX: M16.11 Unilateral primary osteoarthritis, right hip (principal); Z96.642 Presence of left artificial hip joint; I10 Essential (primary) hypertension
CPT/HCPCS: 36415; 73502; 85014; 85018; 88305; 88311; 88342; 94762; 97110; 97116; 97162; 97530; C1776; C9290; J0690; J1100; J2250; J2274; J2405; J2704; J3010; J3370

== ENCOUNTER 2023-10-11 06:33 | Day surgery (SDC) | payer MEDICARE, SELFPAY ==
[2018-03-01 11:01] VITALS: BMI 24.1
[2023-09-25 13:46] VITALS: BMI 18.7
[2023-10-11] VITALS (8 sets, daily range): BP systolic 104–129; BP diastolic 53–70; PULSE 77–88; RESP 10–22; TEMP 36–36.3; O2SAT 96–100; BMI 18.7
--- NOTE | 2023-10-11 06:00 | DI.RAD.S_ITS ---
PROCEDURE: XR SHOULDER RT 1V INDICATIONS: RTSA TECHNIQUE: 1 views of the shoulder were acquired. COMPARISON: [facility] [place] [facility], CR, XR SHOULDER 2+ VIEWS RIGHT, 07/09/2023, 8:39. FINDINGS: Bones: Right shoulder reverse arthroplasty. Hardware is intact without hardware fracture or periprosthetic lucency to suggest loosening. Alignment is stable. Soft tissues: No suspicious soft tissue calcifications. Soft tissue postoperative change. In addition, right Port-A-Cath is stable. IMPRESSION: Right shoulder reverse arthroplasty. Dictated by: Sintia Nye M.D. on 10/12/2023 at 11:23 Approved by: Sintia Nye M.D. on 10/12/2023 at 11:25
--- NOTE | 2023-10-11 07:34 | PM.PREOP ---
Pre-operative Note Interval Note History & Physical reviewed/Exam performed by Physician: Yes Changes to H&P: No
[2023-10-11] MEDS: ACETAMINOPHEN 325 MG TABLET 975 MG PO (07:58)
[2023-10-11] MEDS: LACTATED RINGERS 1,000 ML 42 ML IV ×2 (08:02→10:57)
[2023-10-11] MEDS: TRANEXAMIC ACID 1,000 MG VIAL 1000 MG INJ (09:33)
--- NOTE | 2023-10-11 10:08 | SUR.OPER ---
Beach chair with Palmira/Gloria shoulder positioner. Lower body on padded OR bed. Head in foam padded head cradle, secured with straps. Non-operative arm secured <90 degrees abduction. Pillow under knees. Safety belt at thigh. Cloth tape over blanket over lower legs.
[2023-10-11] MEDS: BUPIVACAINE 0.25% (PF) 30 ML, EPINEPHrine 0.15 MG INJ (10:18)
--- NOTE | 2023-10-11 12:02 | PM.PREOP ---
Pre-operative Note Interval Note History & Physical reviewed/Exam performed by Physician: Yes Changes to H&P: No
--- NOTE | 2023-10-11 13:15 | P.OP_ITS ---
Operative Date/Time/Diagnoses Date of procedure: 10/11/23 Time of procedure: 13:15 Pre-op diagnosis: Right rotator cuff arthropathy Post-op diagnosis: same Procedure & Clinicians Procedure: Right reverse total shoulder arthroplasty Same procedure as scheduled: Yes Indications: Indications: This is a 83-year-old female who has rotator cuff arthropathy. Symptoms have been present for years, insidious onset. Patient has failed a reasonable attempt at conservative therapy. After extensive discussion in clinic, they wished to go forward with surgery. Risks and benefits were described including the risk of infection, bleeding, damage to internal structures including nerves. We also discussed the risk of failure of surgery and the need for revision surgery as well as the risk of anesthesia. The patient expressed understanding with these risks and wished to go forward with surgery. Surgeon: Hebert Kyle Supervisor Respiratory: Des Love Anesthesia Type: General Operative Notes Findings: Findings: Osteoarthritis of the glenoid and humeral head as well as a defient rotator cuff as noted on preoperative imaging and under direct visualization Closure Type: primary Specimen(s): none sent Prosthetic devices, grafts, tissues, transplants, or devices: Tornier implants Base plate: standard 25 mm, +3 mm offset Glenosphere: Standard 36 mm Stem: Perform 2+ Poly: +3 constrained Estimated Blood Loss (mL): 100 Blood products transfused: none Procedure in detail: Patient was seen in the preoperative holding unit. The correct right shoulder was identified and marked with my initials. Again we discussed the risks and benefits of surgery and they wished to go forward with surgery. The patient was brought back to the operating room and placed supine on the operating table. Smooth endotracheal intubation was performed by anesthesia. All prominences were padded and they were placed into the beach chair position. Intravenous antibiotics were given. The right shoulder was then prepped with the standard sterile preparation and draping. A time-out was then performed in my initials were again identified on the correct shoulder. 1 g of IV tranexamic acid was given. A standard deltopectoral incision was made. Skin flaps were made. The cephalic vein was identified and retracted laterally. This was protected throughout the remainder of the case. Sharp dissection was made along the deltoid, subacromial and subcoracoid space to release adhesions. The conjoined tendon was identified and the axillary nerve was palpated and continuous using the tug test. It was protected throughout the remainder of the case. A brown retractor was placed underneath the deltoid muscle and a darach retractor underneath the conjoint tendon. The subscapularis muscle was ntoed to be intact. The anterior circumflex artery and associated veins on the lower border of the subscapularis were identified and tied off using 0-Vicryl. The biceps tendon was identified in the bicipital groove. This was released from its sheath, and taken from its origin on the glenoid and tied into the pectoralis tendon for a solid tenodesis. We then began a subscapularis peel. The subscapularis was tagged with an Ethibond suture. A 360 degree circumferential release of the subscapularis was performed with protection of the axillary nerve. The coracohumeral ligament was released at the base of the coracoid. The shoulder was then dislocated. Osteophytes were removed using combination of rongeur and osteotome. The rotator cuff was noted to be insufficient. An intramedullary guide was used set at version of 20?. Using an oscillating saw a conservative humeral head cut was made. Impaction reamers were reamed up to a size 2 stem with a built-in angle 135?. A neck protector was placed. Attention was then turned to the glenoid. After retracting the humeral head posteriorly a circumferential release was performed of the capsule with protection of the axillary nerve. The labrum was then released starting at the biceps anchor and going around the rim a small amount of triceps was released from the inferior glenoid. A center guide pin was then placed using the guide, followed by Reamer. After adequate cartilage was removed the boss was reamed and the centeral hole was drilled and measured. The base plate was then implanted and screwed into place. The peripheral screws were then sequentially drilled, measured, and placed. A 36 standard glenosphere was then selected and screwed into place onto the base plate. Turning back to the humerus, the humeral head was delivered and trialed with a +3 constrained. The arm was taken through range of motion and this was felt to be stable. The trial was then removed and a dilute Betadine wash was then performed with 1 L of sterile saline. Before placing the final implant, drill holes were made in the bicipital groove for the subscapularis repair, and sutures were passed through the drill holes. The final stem was then impacted into the humerus. The shoulder was then reduced and again brought through range of motion and was felt to be stable. The subscapularis was then repaired using a modified racking hitch with nice loupes. The skin was closed with 2-0 vicryl and 3-0 Monocryl followed by Aquacel dressing. Patient was awoken from anesthesia and brought back to the postoperative recovery unit without issue. They were placed into a sling. Assisting participation: This operation could not have been safely performed (without compromising the technical results or length of the procedure) without the assistance of a skilled surgical physician assistant. The surgical physician assistant was medically necessary for proper positioning, retraction and manipulation of instruments, proper exposure, graft prep, and manipulation of tissue. Complications: none Post-operative Condition: stable Disposition: PACU Plan for aftercare: Postoperative instructions: Sling to remain on for 6 weeks. No external rotation past neutral for 6 weeks. Okay for the sling to come off for shower. Okay to shower over the Aquacel dressing. If any water gets underneath the dressing, remove the dressing. First postoperative visit in 2 weeks.
== END 2023-10-11 12:24 | disposition home or self-care (01) ==
PROVIDERS: Family Provider Internal Medicine Hematology & Oncology; PCP Internal Medicine Hematology & Oncology; Referring Provider Internal Medicine Hematology & Oncology; Visit Provider Orthopaedic Surgery
PROC: (CPT 23472; principal; 2023-10-11 09:00)
DX: M19.011 Primary osteoarthritis, right shoulder (principal); G89.18 Other acute postprocedural pain; M25.711 Osteophyte, right shoulder
CPT/HCPCS: 23472; 64415; 73020; C1776; J0171; J0690; J1100; J2405; J2704

== ENCOUNTER → 2024-10-19 10:22 | Outpatient (CLI) | payer MEDICARE, SELFPAY ==
[2018-03-01 11:01] VITALS: BMI 24.1
--- NOTE | 2024-10-19 10:24 | DI.MRI.S_ITS ---
PROCEDURE: MR HEAD/BRAIN WO/W CON INDICATIONS: MALIGNANT NEOPLASM OF BREAST AND BRAIN TECHNIQUE: Noncontrast axial T1 spin echo, axial T2 fast spin echo, sagittal and axial FLAIR, coronal T2 fast spin echo, axial gradient echo, axial diffusion and ADC through the brain. After the administration of contrast, axial and coronal and sagittal T1 spin echo with fat saturation through the brain. COMPARISON: [facility], MR, MR BRAIN WITH/WITHOUT CONTRAST, 09/10/2024, 15:37. FINDINGS: Image quality: Excellent. CSF spaces: Basal cisterns are patent. No extra-axial fluid collections. Ventricles are normal in size and shape. Brain: No midline shift. No intracranial bleeds. The previously seen enhancing components of masses within the cerebrum and cerebellum are not significantly changed. For example, the previously seen right posterior parafalcine mass at the frontoparietal lobe junction measuring 12 mm is not significantly changed. However, the previously seen ill-defined FLAIR signal elevation surrounding this lesion has increased, currently spanning 27 mm anteroposterior (previously 10 mm). Additionally, the previously seen confluent masses within the right medial cerebellum extending to the vermis measuring 24 mm transverse is not significantly changed, but the surrounding ill-defined FLAIR signal elevation has increased in intensity, currently measuring 32 mm transverse (previously 24 mm). There is cerebral volume loss for age. There is periventricular white matter chronic small vessel ischemic change. The brainstem appears normal. Diffusion- weighted images demonstrate no acute infarct. No chronic ischemic insults. Normal intravascular flow voids are present. Skull and face: Calvarial marrow is normal in signal. As before, there is an enhancing mass within the right lateral orbit abutting the posterior globe, which is slightly increased in size, currently measuring 29 mm anteroposterior by 15 mm transverse, with increased encasement of the posterior globe. The medial left orbital mass measuring 19 mm anteroposterior is slightly increased (previously measuring 15 mm). Sinuses: Sinuses and mastoids appear clear. IMPRESSION: 1. Increased edema surrounding the right parafalcine cerebral mass an the right cerebellar mass, which could indicate disease progression or response to therapy. 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 2. Increased bilateral orbital masses. Dictated by: Fazal Walters M.D. on 10/20/2024 at 13:55 Approved by: Fazal Walters M.D. on 10/20/2024 at 14:03
== END ==
PROVIDERS: Family Provider Internal Medicine Hematology & Oncology; PCP Internal Medicine Hematology & Oncology; Referring Provider Internal Medicine Hematology & Oncology; Visit Provider Internal Medicine Hematology & Oncology
DX: C50.919 Malignant neoplasm of unspecified site of unspecified female breast (principal); C79.31 Secondary malignant neoplasm of brain; G93.6 Cerebral edema
CPT/HCPCS: 70553; A9579